=== PATIENT | female | born 1945 | race Caucasian/White ===

== ENCOUNTER → 2016-09-22 | Outpatient (CLI) | payer MEDICARE, OTHER ==
[~2016-09-22] MED LIST: AMOXICILLIN875 MG PO; ASPIRIN PO; BENZONATATE PO; CALCIUM 250+D T1 TAB PO; CERTAGEN PO; FISH OIL 1,0001 CAP PO; GUAIFENESIN200 M1 PO; LIPITOR PO; LORTAB 7.5-5001 TAB PO; NORVASC2.5 MG PO; PREMARIN PO; PRILOSEC40 MG PO; RECLAST 55 MG/100 M IV; TOPROL XL PO
--- NOTE | ~2016-09-22 | MY29 ---
[facility] A Service of [facility] RADIOLOGY TEXT RESULTS PATIENT: CAMACHO MARTINEZ LOCATION: [facility] : 43 UNIT #: [id number] AGE: [address]: MAHENDRA HOOD MD SEX: F ORDER DR: [id number] [facility] [address] [place], [place] [address] [id number] O MR#: [id number] Acc #: [id number] NAME: CAMACHO MARTINEZ. : 1945 SEX: F STUDY DATE/TIME: 09/22/2016 13:17 UNIT: [facility] ROOM: STUDY DESCRIPTION: MY BRAEDEN SCREENING W/ CAD BILAT Attending Physician: Mahendra Hood M.D. Referring Physician: Mahendra Hood M.D. Ordering Physician: Mahendra Hood M.D. Primary Care Physician: Mahendra Hood M.D. MEDICAL IMAGING REPORT This report is preliminary unless electronic signature is present EXAM Digital screening mammogram 09/22/2016 HISTORY 71-year-old woman, no risk elevation. Annual screening. COMPARISON STUDIES Comparison mammograms date to 06/09/2005 with most recent 09/19/2015. FINDINGS Digital imaging of each breast was completed utilizing standard craniocaudal and mediolateral-oblique projections. Review and interpretation of digital mammograms include a second review in conjunction with FDA-approved CAD device. There is an overall increase in the parenchymal presentation bilaterally with a generalized fibronodular pattern in each breast. There are no breast masses and I see no asymmetry in the parenchymal presentation. There are no suspicious microcalcifications and I see no architectural disturbance. Benign calcifications in each breast, stable. IMPRESSION Benign mammogram. One-year followup recommended. Patients over the age of 40 are entered into a reminder system with target due date for the next mammogram. A result letter will also be sent to the patient. BIRADS: 2 Benign finding Dictated by... [facility] A Service [facility] RADIOLOGY TEXT RESULTS PATIENT: CAMACHO MARTINEZ LOCATION: [facility] : 43 UNIT #: [id number] AGE: [address]: MAHENDRA HOOD MD SEX: F ORDER DR: Santi Driver M.D. THIS IS AN ELECTRONICALLY VERIFIED REPORT Santi Driver M.D. at 09/23/2016 8:04 AM JBB/pcl TD: 09/22/2016 20:44 JOB #: [id number] MEDICAL IMAGING REPORT Page 1 of 1 COPY
--- NOTE | ~2016-09-22 | BD1 ---
[facility] A Service of [facility] RADIOLOGY TEXT RESULTS PATIENT: CAMACHO MARTINEZ LOCATION: [facility] : 43 UNIT #: [id number] AGE: [address]: MAHENDRA HOOD MD SEX: F ORDER DR: [id number] [facility] [address] [place], [place] [address] [id number] O MR#: [id number] Acc #: [id number] NAME: CAMACHO MARTINEZ. : 1945 SEX: F STUDY DATE/TIME: 09/22/2016 13:02 UNIT: [facility] ROOM: STUDY DESCRIPTION: BD Dexa Bone Dens 1+ Site Attending Physician: Mahendra Hood M.D. Referring Physician: Mahendra Hood M.D. Ordering Physician: Mahendra Hood M.D. Primary Care Physician: Mahendra Hood M.D. MEDICAL IMAGING REPORT This report is preliminary unless electronic signature is present EXAM DXA scan 09/22/2016 HISTORY Status post menopause with no hormone replacement therapy. Osteopenia. Hysterectomy at age 59 with removal of both ovaries. Arthritis. Hypertension with blood pressure medication for 15 years. Family history of osteoporosis in sister. FINDINGS Bone mineral density in the lumbar spine from L1-L4 was 0.77 g/cm2 which is 2.5 standard deviations below the mean when compared to the young adult reference population which is characteristic of osteoporosis. This is 0.2 standard deviations below the mean when compared to the age-matched population. Compared 05/22/2014 there has been an increase in bone mineral density in the lumbar spine of 0.7%. Bone mineral density in the left femoral neck was 0.589 g/cm2 which is 2.3 standard deviations below the mean when compared to the young adult reference population which is characteristic of osteopenia. This is 0.4 standard deviations below the mean when compared to the age-matched population. Compared with 05/22/2014, there has been a decrease in bone mineral density in the left hip of 2.2%. IMPRESSION Bone mineral density in the lumbar spine characteristic of osteoporosis and within the left hip characteristic of osteopenia. Compared with 05/22/2014, there has been an increase in bone mineral density in the lumbar spine and a decrease in bone mineral density in the left hip. Dictated by... Rajeev Valdes M.D. [facility] A Service of [facility] RADIOLOGY TEXT RESULTS PATIENT: CAMACHO MARTINEZ LOCATION: [facility] : 41 UNIT #: [id number] AGE: [address]: MAHENDRA HOOD MD SEX: F ORDER DR: THIS IS AN ELECTRONICALLY VERIFIED REPORT Rajeev Valdes M.D. at 09/23/2016 2:17 PM LILLIE/keisha TD: 09/22/2016 21:18 JOB #: [id number] MEDICAL IMAGING REPORT Page 1 of 1 COPY
== END | disposition home or self-care (01) ==
LOC: CWCC 12:15
DX: Z12.31 Encounter for screening mammogram for malignant neoplasm of breast (principal); M81.0 Age-related osteoporosis without current pathological fracture; M85.88 Other specified disorders of bone density and structure, other site
CPT/HCPCS: 77080; G0202